=== PATIENT | female | born 1975 | race Hispanic/Latino ===

== ENCOUNTER 2019-12-05 18:31 | Emergency (ER) | payer OTHER, SELFPAY ==
--- NOTE | ~2019-12-05 | XR_ITS ---
XR ankle RT min 3V 12/05/2019 20:21 INDICATION: Right ankle pain PROCEDURE: 4 views right ankle COMPARISON: No prior studies for comparison. FINDINGS: Fracture, dislocation or subluxation is not identified. Small degenerative calcaneal enthes ophytes. The soft tissues appear within normal limits. No foreign bodies are identified. IMPRESSION: 1: NO ACUTE BONE OR JOINT ABNORMALITY IDENTIFIED. Reviewed, dictated and finalized at location A.
--- NOTE | ~2019-12-05 | XR_ITS ---
[XR ribs RT 2V w CXR 2V ] INDICATION: Right rib pain after fall TECHNIQUE: Frontal projection of the upper right ribs, frontal projection of the lower right ribs, ob lique projection of all the right ribs, frontal inspiratory chest x-ray for interpretation. FINDINGS: There are no displaced rib fractures identified. There are no soft tissue abnormality see n. The lungs are clear. IMPRESSION: 1:No displaced rib fractures. Reviewed, dictated and finalized at location A.
--- NOTE | ~2019-12-05 | XR_ITS ---
XR shoulder RT min 2V 12/05/2019 20:25 INDICATION: Right shoulder pain PROCEDURE: 4 views right shoulder COMPARISON: No prior studies for comparison. FINDINGS: Fracture, dislocation or subluxation is not identified. The soft tissues appear within norm al limits. No foreign bodies are identified. IMPRESSION: 1: NO ACUTE BONE OR JOINT ABNORMALITY IDENTIFIED. Reviewed, dictated and finalized at location A.
--- NOTE | ~2019-12-05 | XR_ITS ---
XR knee RT 3V 12/05/2019 20:30 INDICATION: Right knee pain PROCEDURE: 3 views right knee COMPARISON: No prior studies for comparison. FINDINGS: Fracture, dislocation or subluxation is not identified. The soft tissues appear within norm al limits. No foreign bodies are identified. IMPRESSION: 1: NO ACUTE BONE OR JOINT ABNORMALITY IDENTIFIED. Reviewed, dictated and finalized at location A.
[2019-12-05 19:17] VITALS: BP 157/62; PULSE 76; RESP 17; TEMP 36.4; O2SAT 99
--- NOTE | 2019-12-05 20:05 | ED.FALL ---
HPI - Fall General Chief Complaint: Fall Stated Complaint: fall - leg pain Time Seen by Provider: 12/05/19 19:26 History of Present Illness HPI Narrative: Patient is a 44-year-old female who presents ER to be evaluated after a fall yesterday. She tripped over her scale in the living room. She fell on her right side. She got her ankle twisted under her and has pain when she bears weight. No numbness or tingling but does she note increased swelling. She additionally reports right chest wall pain that is worse with taking deep breath and with certain movements. She is not out of breath when she walks. She has no fevers or chills or sweats. No productive cough. Patient does report backache since fall but no numbness or tingling. Related Data Allergies Allergy/AdvReac Type Severity Reaction Status Date / Time No Known Allergies Allergy Verified 12/05/19 19:19 Review of Systems Respiratory: Respiratory: Denies cough and Denies dyspnea Musculoskeletal: Musculoskeletal: Reports back pain, Reports myalgias and Reports arthralgias Neurologic: Denies syncope, Denies focal weakness and Denies numbness PMFSH Surgical History Surgical History (Updated 12/05/19 @ 20:08 by Miguel Angel Polanco MD) History of cholecystectomy History of tonsillectomy Previous section Social History Social History Gender identity (if verbalized by the patient): Female Exam Narrative: Exam Narrative: GENERAL: Well-appearing, well-nourished, and in no acute distress. HEAD: Normocephalic, atraumatic. ENT: Mucous membranes moist. CHEST: Clear to auscultation. No respiratory distress. HEART: Regular rate and rhythm. Normal peripheral pulses. EXTREMITIES: Right ankle with mild edema compared to the left, mild tenderness over the ATFL. No bruising or abrasion. No calf tenderness. Normal range of motion of the right shoulder with internal and external rotation can reach midline of her back. Back: Mild diffuse discomfort of the paraspinal musculature of the thoracic spine and trapezius musculature. No midline tenderness. SKIN: Warm, dry, no rash. NEURO: Alert and oriented x3. Course Course Emergency Course: Unremarkable evaluation. Discharged with anti-inflammatories. Patient reports some gastritis related to this we will also prescribe some omeprazole. Vital Signs Vital signs: Vital Signs Temperature 97.5 F L 12/05/19 19:17 Pulse Rate 76 12/05/19 19:17 Respiratory Rate 17 12/05/19 19:17 Blood Pressure 157/62 H 12/05/19 19:17 Pulse Oximetry 99 12/05/19 19:17 Temperature 97.5 F L 12/05/19 19:17 Pulse Rate 76 12/05/19 19:17 Respiratory Rate 17 12/05/19 19:17 Blood Pressure 157/62 H 12/05/19 19:17 Pulse Oximetry 99 12/05/19 19:17 MDM - Fall Imaging Data Radiologist's impression: ITS Impressions Shoulder X-Ray 12/05/19 20:26 IMPRESSION: 1: NO ACUTE BONE OR JOINT ABNORMALITY IDENTIFIED. Ankle X-Ray 12/05/19 20:27 IMPRESSION: 1: NO ACUTE BONE OR JOINT ABNORMALITY IDENTIFIED. Ribs w/Chest X-Ray 12/05/19 20:28 IMPRESSION: 1:No displaced rib fractures. Knee X-Ray 12/05/19 20:33 IMPRESSION: 1: NO ACUTE BONE OR JOINT ABNORMALITY IDENTIFIED. Discharge Plan Discharge Clinical Impression: Right ankle sprain, Right-sided chest wall pain Patient Disposition: Home, Self-Care Condition: Stable Instructions: Ankle Sprain (ED), R.I.C.E. Treatment (ED) Additional Instructions: Return to the ER if you have chest pain or shortness of breath, you cannot keep down food or water, you have fever over 100.4 ?F, you have additional concerns. Prescriptions: New naproxen 500 mg tablet 500 mg PO BID Qty: 20 RF: 0 omeprazole 40 mg capsule,delayed release(DR/EC) 40 mg PO DAILY Qty: 14 RF: 0 Follow-up/Referrals: Shubham,MD Tk [Primary Care Provider] -
[2019-12-05 20:53] VITALS: BP 125/64; PULSE 71; RESP 16; TEMP 36.7; O2SAT 98
== END 2019-12-05 20:56 | disposition home or self-care (01) ==
PROVIDERS: Emergency Provider Emergency Medicine; PCP Internal Medicine
DX: S93.401A Sprain of unspecified ligament of right ankle, initial encounter (principal); R07.89 Other chest pain; W01.0XXA Fall on same level from slipping, tripping and stumbling without subsequent striking against object, initial encounter
CPT/HCPCS: 71046; 71100; 73030; 73562; 73610; 99284

== ENCOUNTER 2020-02-25 16:19 | Emergency (ER) | payer OTHER, SELFPAY ==
[2020-02-25 16:38] VITALS: BP 149/74; PULSE 91; RESP 16; TEMP 36.6; O2SAT 100
--- NOTE | 2020-02-25 16:38 | PC.NURSE ---
in br to obtain ua spec.
--- NOTE | 2020-02-25 16:45 | ED.GENADULT ---
HPI - General Adult General Chief complaint: Urogenital-Female Stated complaint: Possible UTI Time Seen by Provider: 02/25/20 16:45 Source: patient and RN notes reviewed Mode of arrival: ambulatory Limitations: no limitations History of Present Illness HPI narrative: 44-year-old female presents with urinary complaints for the past 3 days. Taylor reports increase flank pain, burning, frequency, and urgency over the past 24 hours. Azo (last on 02/24/20), cranberry juice, and water with littler relief. Denies fever. No significant pelvic pain. No vaginal discharge.? No concerns for STDs. Exacerbating factors urinating.? Denies hematuria or vaginal bleeding. Denies being , [id number]/01/19. Denies nausea, vomiting, and abdominal pain.? Tolerating liquids well.? Remains active. The patient reports she have not been diagnosed with COVID-19. The patient reports she is not waiting for the results of a COVID-19 lab test. The patient reports she do not have chills, weakness, or fatigue. The patient reports she do not have a new or worsening cough or shortness of breath. Denies chest pain. The patient reports she do not have any rhinorrhea, congestion, sore throat, loss of taste or smell, or diarrhea. Denies recent traveling. Denies concerns for COVID-19 or exposures been home with limited outdoor exposure except for essential household needs, work, and return home. At this time, patient is not suspected of having COVID-19. Complains of dental pain for the past 5 days. Taylor reports LT upper dental pain increased over the past 2 days once filling fell out of crown, no dental insurance until March. No jaw swelling. No neck swelling. No limitation with speaking or swallowing. Has history of dental caries. Has not seen a dentist recently. No dental trauma. No oral lesions. Exacerbating factors consist eating and drinking cold items. Relieving factor avoiding cold items. No dentures or bridges. Some parts of this dictation were generated by voice recognition software and may contain typographical and/or grammatical inaccuracies. Related Data Home Medications Medication Instructions Recorded Confirmed metformin 500 mg PO DAILY 02/25/20 02/25/20 Allergies Allergy/AdvReac Type Severity Reaction Status Date / Time No Known Allergies Allergy Verified 02/25/20 16:34 Review of Systems Review of Systems: Narrative: CONSTITUTIONAL: Denies fever, chills, sweats. EYES: Denies visual changes, redness, discharge. ENT: Denies rhinorrhea, congestion, sore throat, otalgia. Complains of LT upper dental pain. CARDIOVASCULAR: Denies chest pain, palpitations, edema. RESPIRATORY: Denies dyspnea, wheezing, cough. GASTROINTESTINAL: Denies abdominal pain, nausea, vomiting, diarrhea. GENITOURINARY: Complains of dysuria (burning, frequency, and urgency). Denies hematuria, abnormal discharge. SKIN: Denies rash or itching. MUSCULOSKELETAL: Denies acute back pain, joint pain, or myalgia. NEUROLOGIC: Denies numbness or focal weakness. PSYCHIATRIC: Denies anxiety or depression. All systems reviewed & are unremarkable except as noted in HPI and below. [facility] Past Medical History Medical History (Updated 02/26/20 @ 00:00 by Background Daemon) delivery delivered Cyst Removed from left side of neck Diabetes UTI (urinary tract infection) Surgical History Surgical History (Updated 02/25/20 @ 17:09 by KAREY Ag) H/O section X2 History of cholecystectomy History of removal of cyst History of tonsillectomy History of tubal ligation Family History Family History (Updated 02/25/20 @ 17:10 by KAREY Ag) Father Acute myocardial infarction Heart disease Mother Hypertension Diabetes mellitus Grandparent Acute myocardial infarction Heart disease Grandparent Diabetes mellitus Social History Social History (Updated 02/25/20 @ 17:10 by Moira Lujan
== END 2020-02-25 17:05 | disposition home or self-care (01) ==
PROVIDERS: Emergency Provider Nurse Practitioner Family
DX: N39.0 Urinary tract infection, site not specified (principal); K02.9 Dental caries, unspecified; E11.9 Type 2 diabetes mellitus without complications
CPT/HCPCS: 81003; 87086; 99203; G0463

== ENCOUNTER 2020-11-23 19:02 | Emergency (ER) | payer OTHER, SELFPAY ==
--- NOTE | 2020-11-23 19:09 | ED.FEMALEGU ---
HPI - Female Genitourinary General Chief complaint: Urogenital-Female Stated complaint: UTI Time Seen by Provider: 11/23/20 19:09 Source: patient and RN notes reviewed Mode of arrival: ambulatory Limitations: no limitations History of Present Illness HPI Narrative: 45-year-old female presents to the [facility] with complaints of dental pain and a UTI. Patient states she does have burning and frequency with urination. Also has had a root canal that got infected in the left upper incisor. Area is now red and inflamed. States that she does not have insurance so she has been unable to follow-up. States that her blood sugars have been running in the mid 200s. Discussed with patient she needs to follow-up with her primary care provider for better control of her blood sugars and her urinary symptoms will improve. MD elicited complaint: UTI Related Data Home Medications Medication Instructions Recorded Confirmed metformin mg 11/23/20 Allergies Allergy/AdvReac Type Severity Reaction Status Date / Time No Known Allergies Allergy Verified 11/23/20 19:19 Review of Systems Review of Systems: All systems reviewed & are unremarkable except as noted in HPI and below Constitutional: Constitutional: Reports no additional constitutional complaints and Denies chills Eyes: Eyes: Reports no additional eye complaints ENT: Reports as per HPI Comments: Left upper dental pain Cardiovascular: Cardiovascular: Reports no additional cardiovascular complaints Respiratory: Respiratory: Reports no additional respiratory complaints Genitourinary: Genitourinary: Reports as per HPI, Reports nocturia, Reports dysuria and Denies flank pain Musculoskeletal: Musculoskeletal: Reports no additional musculoskeletal complaints and Denies back pain Integumentary/Breasts: Skin/Breast: Reports system reviewed and no additional complaints, except as docu Neurologic: Reports system reviewed and no additional complaints, except as documented Psychiatric: Psychiatric: Reports no additional psychiatric complaints Allergic/Immunologic: Allergic/Immunologic: Reports no additional allergic/immunologic complaints [facility] Past Medical History Medical History Diabetes type 2, uncontrolled H/O gastroesophageal reflux (GERD) Surgical History Surgical History History of cholecystectomy History of tonsillectomy Previous section Social History Social History Gender identity (if verbalized by the patient): Female Comments At the time of my signature, I reviewed and agree with the nursing past medical, surgical, social, and family history. There is no relevant family history pertinent to the patient complaint. Exam Const: General: healthy appearing, no acute distress and alert Nutritional Appearance: well nourished Orientation/consciousness: patient oriented x3 Limitations: no limitations HENMT: Head: normal to inspection Eyes: Pupils: Equal, round and reactive pupils present Neck: Neck: normal visual inspection, no lymphadenopathy and no meningeal signs Chest: Chest palpation & inspection: normal inspection of the chest Resp: Effort & Inspection: normal respiratory effort and no use of accessory muscles Auscultation: clear to auscultation bilaterally, no crackles, no rales, no rhonchi and no wheezes Cardio: Rate: regular rate Rhythm: regular rhythm GI: GI Palp: Yes Soft to palpation and No Tenderness to palpation present (GI) : General: Yes no CVA tenderness Back/Spine/Pelvis: Back: no CVA tenderness Skin: General skin exam: normal color Rashes: no rashes Wounds: no wounds Neuro: General: patient oriented x3, moves all extremities, no meningeal signs and no focal motor deficits Speech: normal speech Gait exam (Neuro): Normal gait present Extrem: General: normal to inspect
[2020-11-23 19:13] VITALS: BP 130/74; PULSE 100; RESP 16; TEMP 36.3; O2SAT 100
== END 2020-11-23 19:30 | disposition home or self-care (01) ==
PROVIDERS: Emergency Provider Nurse Practitioner; PCP Internal Medicine
DX: R30.0 Dysuria (principal); K04.7 Periapical abscess without sinus; E11.9 Type 2 diabetes mellitus without complications; K21.9 Gastro-esophageal reflux disease without esophagitis
CPT/HCPCS: 81003; 87086; 99213; G0463

== ENCOUNTER 2022-02-03 19:16 | Emergency (ER) | payer OTHER, SELFPAY ==
--- NOTE | 2022-02-03 19:20 | ED.URI ---
HPI - URI/Sore Throat General Chief Complaint: Upper Respiratory Infection Stated Complaint: Sore Throat/Blood Time Seen by Provider: 02/03/22 19:20 Source: patient Mode of arrival: ambulatory Limitations: no limitations History of Present Illness HPI Narrative: Ms. Newamn is a 46-year-old female patient presenting to the clinic today with complaints of sore throat. She reports symptoms started yesterday. She denies any fever or chills. She also notes some nasal congestion and coughing up some green phlegm. MD elicited complaint: sore throat and nasal congestion Related Data Allergies Allergy/AdvReac Type Severity Reaction Status Date / Time No Known Allergies Allergy Verified 02/03/22 19:27 Review of Systems Review of Systems: Pertinent positives per HPI. Patient denies any fever, chills, rash, headache, visual changes, dizziness, shortness of breath, chest pain, palpitations, nausea, vomiting, diarrhea, constipation, abdominal pain, or any urinary issues. PMFSH Past Medical History Medical History delivery delivered Cyst Removed from left side of neck Diabetes Diabetes type 2, uncontrolled H/O gastroesophageal reflux (GERD) UTI (urinary tract infection) Surgical History Surgical History H/O section X2 History of cholecystectomy History of cholecystectomy History of removal of cyst History of tonsillectomy History of tonsillectomy History of tubal ligation Previous section Family History Family History Mother Hypertension Family history of elevated blood lipids Family history of malignant neoplasm of cervix Social History Social History Smoking status: Never smoker Tobacco type: cigarettes Second hand tobacco smoke exposure: No Alcohol intake: never Substance use: never Gender identity (if verbalized by the patient): Female Sexual Orientation (if Verbalized by the Patient): Straight or Heterosexual Comments At the time of my signature, I reviewed and agree with the nursing past medical, surgical, social, and family history. There is no relevant family history pertinent to the patient complaint. Exam Narrative: General: Well-developed, well nourished, in no apparent distress Head: Normocephalic, atraumatic Eyes: Pupils equally round and reactive to light bilaterally, EOM intact, sclera and conjunctive clear, no discharge, lids normal Ears: TMs intact and clear, ear canals clear, no drainage, grossly hearing normal. Nose: Nares patent, clear nasal discharge, no inflammation, no sinus tenderness. Mouth: Oral pharynx without lesions or masses, good dentition, MMM. Oropharynx red, postnasal drip Neck: Supple, trachea midline, no enlargement of anterior or posterior cervical nodes, no thyroid masses or goiter palpable. Cardio: Regular rate and rhythm, s1 and s2 normal, no murmur appreciated. Resp: Clear to auscultation bilaterally, no rhonchi, rales, wheezing or rubs Course Course Emergency Course: Portions of this record may have been created with voice recognition software. Level of Care: Express Care Visit Vital Signs Vital signs: Vital Signs Temperature 37.2 C 02/03/22 19:24 Pulse Rate 92 02/03/22 19:24 Respiratory Rate 16 02/03/22 19:24 Blood Pressure 147/70 H 02/03/22 19:24 Pulse Oximetry 99 02/03/22 19:24 Oxygen Delivery Room Air 02/03/22 19:24 Temperature 37.2 C 02/03/22 19:24 Pulse Rate 92 02/03/22 19:24 Respiratory Rate 16 02/03/22 19:24 Blood Pressure 147/70 H 02/03/22 19:24 Pulse Oximetry 99 02/03/22 19:24 Oxygen Delivery Room Air 02/03/22 19:24 Vital signs reviewed MDM - URI/Sore Throat MDM Narrative Medical decision making narrative:
[2022-02-03 19:24] VITALS: BP 147/70; PULSE 92; RESP 16; TEMP 37.2; O2SAT 99
== END 2022-02-03 19:46 | disposition home or self-care (01) ==
PROVIDERS: Emergency Provider Nurse Practitioner Family; PCP Internal Medicine
DX: J02.9 Acute pharyngitis, unspecified (principal); Z20.818 Contact with and (suspected) exposure to other bacterial communicable diseases; E11.9 Type 2 diabetes mellitus without complications; K21.9 Gastro-esophageal reflux disease without esophagitis
CPT/HCPCS: 87880; 99213; G0463